=== PATIENT | male | born 1945 | race Caucasian/White ===

== ENCOUNTER → 2017-08-06 | Emergency (ER) | payer OTHER ==
[~2017-08-06] VITALS: Ht 180.3 cm; Wt 140.6 kg
[~2017-08-06] MED LIST: ANTIVERT25 MG PO; ASPIRIN81 M2 PO; AZITHROMYCIN 2250 MG PO; CLONAZEPAM 0.50.5 M1 PO; COLACE100 MG PO; COUMADIN 4 MG TA4 M1 PO; DIGOXIN125 MCG PO; GLIPIZIDE 10 MG10 MG PO; KLOR-CON 1010 MEQ PO; LASIX 40 MG TAB40 M2 PO; LEVAQUIN 750 M750 MG PO; LISINOPRIL5 MG PO; LOTRIMIN ULTRA12 GM TOP; METFORMIN HCL500 MG PO; MICONAZOLE5 GM TOP; MIRALAX17 GM PO; NORCO 10-325 T1 EACH PO; NORFLEX100 MG PO; NOVOLOG100 UNIT/1 SUBQ; PROBIOTIC1 EAC1 PO; TOPROL XL25 MG PO; TRAZODONE HCL100 MG PO; TYLENOL325 MG PO; VITAMIN D1000 UNI1 PO; ZANAFLEX2 MG PO
[2017-08-06 05:23] VITALS: BP 116/70
== END ==
LOC: ER 01:40
DX: G89.29 Other chronic pain (principal); M54.5 Low back pain; F41.9 Anxiety disorder, unspecified; E11.9 Type 2 diabetes mellitus without complications; I48.91 Unspecified atrial fibrillation; I10 Essential (primary) hypertension; F20.9 Schizophrenia, unspecified

== ENCOUNTER 2018-04-29 22:09 | Inpatient (IN) | payer OTHER ==
[~2018-04-29] VITALS: Ht 180.3 cm; Wt 131.1 kg
--- NOTE | ~2018-04-29 | EKG ---
[address] [place] [address] ELECTROCARDIOGRAM REPORT Name: JEANETTEROMELIA GilMANUEL L Room #: 462-P ADM IN M.R.#: [id number] Admission: 04/29/18 Attend Phys: Luh Yanez Discharge: Date of : 41 Report #: [id number] THIS REPORT FOR: //name// [facility] ED Test Date: 2018-04-29 Test Time: 22:24:41 Pat Name: MANUEL REID Department: Room: 462 Gender: M Clip Riveter: DIXIE : 1945 Requested By: Nathan Sexton Order Number: [id number] MD: Gray Mcallister Measurements Intervals [place] Rate: 74 P: [place]: QRS: 27 QRSD: 90 T: 60 QT: 380 QTc: 422 Interpretive Statements Atrial fibrillation No previous ECG available for comparison Electronically Signed On 04-30-2018 8:17:15 CDT by Gray Mcallister [email or web address] <ELECTRONICALLY SIGNED> By: Gray Mcallister MD, [facility] 04/30/18 0817 2224 2224 Gray Mcallister MD, FACC /EPI
--- NOTE | ~2018-04-29 | HC ---
[facility] [place] [address] [address] CONSULTATION Name: MANUEL REID Dhiraj Room #: 462-P ADM IN M.R.#: [id number] Admission: 04/29/18 Attend Phys: Luh Yanez Discharge: Date of : 41 Report #: [id number] THIS REPORT FOR: //name// CC: Luh Yanez Marv Brad Wilder DATE OF SERVICE: 05/01/2018 CHIEF COMPLAINT: Right proximal femur fracture. HISTORY OF PRESENT ILLNESS: This heavy debilitated 72-year-old gentleman fell at his fpc injuring the right hip. X-rays here confirmed a nondisplaced proximal femur fracture in the intertrochanteric region on the right side. He has no other apparent injuries. At the time of my evaluation, he is quite heavy and obviously debilitated. In discussing this with the nursing facility, I believe he requires wheelchair for active ambulation, but has been able to stand and transfer and possibly take a few steps to get to the bathroom in an independent fashion prior to this new injury. He is, however, quite heavy and seems weak and frail, which may significantly limit any rehabilitation prospects. OBJECTIVE: He does have right hip irritability with range of motion, but there is no obvious deformity or shortening. X-rays of the right hip reveal an apparent nondisplaced fracture in the intertrochanteric region of the right proximal femur. He has mild degenerative change at the hip joint. The rest of the bony architecture looks satisfactory. I have had several lengthy discussions with the patient explaining the situation and reviewing treatment options including both surgical and nonsurgical management. If he is truly nonambulatory and has other significant limiting factors, then nonsurgical management with activity limitation might result in satisfactory fracture healing; however, I think there is a significant chance the fracture will displace, particularly if he is trying to ambulate and bear weight with limited strength and limited ability to use a walker in a safe fashion. Consequently, fixation with TFN nail may be a better option. He is at some increased risk for perioperative problems given his age, size and deconditioned state. The patient states he understands this and prefers to go ahead with surgical stabilization using a TFN nail fixation device. Pending medical clearance and OR availability, we will plan to proceed with surgery on 05/02/2018. <ELECTRONICALLY SIGNED> By: Hugo Santillan MD 05/02/18 0740 1053 0111 Hugo Santillan MD /nt
--- NOTE | ~2018-04-29 | O ---
[facility] [place] [address] OPERATIVE REPORT Name: MANUEL REID Room #: 462-P [facility] IN M.R.#: [id number] Admission: 04/29/18 Attend Phys: Luh Yanez Discharge: Date of : 41 Report #: [id number] THIS REPORT FOR: //name// CC: Luh [place] Joy Wilder DATE OF SERVICE: 05/02/2018 PREOPERATIVE DIAGNOSIS: Right proximal femur fracture. POSTOPERATIVE DIAGNOSIS: Right proximal femur fracture. PROCEDURE: Open reduction internal fixation, right proximal femur fracture utilizing TFN nail fixation. SURGEON: Hugo Santillan MD INDICATIONS: This heavy, deconditioned, frail 72-year-old gentleman is a limited ambulator due to weakness and significant flexion contractures of both lower extremities. He fell, injuring the right hip. X-rays confirm an intertrochanteric fracture with minimal displacement. We have discussed treatment options and elected to go ahead with surgical repair. DESCRIPTION OF PROCEDURE: The patient was taken to the operating room where he was placed under general anesthesia. Prophylactic intravenous antibiotics were administered. He was positioned on the fracture table with some difficulty given his very large size and also his significant bilateral knee flexion contractures. The lateral aspect of the right hip and thigh were meticulously prepped and draped and visualized with C-arm. The intertrochanteric fracture appears to be unchanged, essentially anatomic position. A skin incision was made just proximal to the greater trochanter and a guidewire passed through the greater trochanter and down the canal. The trochanter was opened and then a Synthes TFN nail was inserted using a 12 mm diameter nail. This was inserted to an appropriate level and rotation. A guidewire was then passed to the lateral aspect, extending up into the femoral neck and head, in the mid to lower aspect. It was checked with C-arm views and felt to be satisfactory. A 110 mm length helical blade was then inserted. This was brought to a point about 1 cm below the subchondral bone at the femoral head. It seated nicely and appeared to be secure. The proximal locking screw was tightened down and the distal interference locking screw was placed using the outrigger guide. C-arm views revealed essentially anatomic alignment of the fracture and good position of the deb and screws. The incisions were then closed with 0 Vicryl, 2-[address] [address] OPERATIVE REPORT Name: MANUEL REID Room #: 462-P [facility] IN ..#: [id number] Admission: 04/29/18 Attend Phys: Luh Yanez Discharge: Date of : 41 Report #: [id number] skin kuyng. A sterile dressing was applied. The patient was awakened and returned to recovery room in satisfactory condition. <ELECTRONICALLY SIGNED> By: Hugo Santillan MD 05/05/18 0930 0841 1010 Hugo Santillan MD /nicolas
[~2018-04-29 22:09] MED LIST changes: -ANTIVERT25 MG PO; -ASPIRIN81 M2 PO; -AZITHROMYCIN 2250 MG PO; -CLONAZEPAM 0.50.5 M1 PO; -COLACE100 MG PO; -COUMADIN 4 MG TA4 M1 PO; -DIGOXIN125 MCG PO; -GLIPIZIDE 10 MG10 MG PO; -KLOR-CON 1010 MEQ PO; -LASIX 40 MG TAB40 M2 PO; -LEVAQUIN 750 M750 MG PO; -LISINOPRIL5 MG PO; -LOTRIMIN ULTRA12 GM TOP; -METFORMIN HCL500 MG PO; -MICONAZOLE5 GM TOP; -MIRALAX17 GM PO; -NORCO 10-325 T1 EACH PO; -NOVOLOG100 UNIT/1 SUBQ; -PROBIOTIC1 EAC1 PO; -TOPROL XL25 MG PO; -TRAZODONE HCL100 MG PO; -TYLENOL325 MG PO; -VITAMIN D1000 UNI1 PO; -ZANAFLEX2 MG PO
[2018-04-29 22:10] VITALS: BP 132/77
[2018-04-30] LABS: ABSOLUTE NEUTROPHILS 8.9 thou/uL (1.4-8.2); BASOPHILS 0.7 % (0.0-2.0); EOSINOPHILS 2.1 % (0.0-3.0); HEMATOCRIT 43.6 % (42.0-52.0); HEMOGLOBIN 14.9 gm/dL (14.0-18.0); LYMPHOCYTES 10.7 % (24.0-44.0); MCHC 34.2 g/dL (28.0-37.0); MCV 90.5 fL (80.0-100.0); MONOCYTES 11.4 % (1.0-8.0); PLATELET COUNT 247 thou/uL (150-400); POLYS 75.1 % (36.0-66.0); RBC 4.81 mil/uL (4.50-6.00); RDW 14.3 % (10.5-14.5); WBC 11.9 thou/uL (4.0-11.0)
[2018-04-30 00:07] LABS: CALCIUM 8.8 mg/dL (8.5-10.1); CREATININE 1.3 mg/dL (0.7-1.3); POTASSIUM 3.6 mmol/L (3.5-5.1)
[2018-04-30 00:17] LABS: INR 1.9; PROTIME 19.3 Seconds (9.3-11.4)
[2018-04-30] MEDS ORDERED: TYLENOL325 MG PO (00:24)
[2018-04-30] MEDS ORDERED: MICONAZOLE5 GM TOP (00:25)
[2018-04-30] MEDS ORDERED: ASPIRIN81 M2 PO (00:26)
[2018-04-30] MEDS ORDERED: LOTRIMIN ULTRA12 GM TOP (00:29)
[2018-04-30] MEDS ORDERED: AZITHROMYCIN 2250 MG PO (00:29)
[2018-04-30] MEDS ORDERED: DIGOXIN125 MCG PO (00:30)
[2018-04-30] MEDS ORDERED: CLONAZEPAM 0.50.5 M1 PO (00:30)
[2018-04-30] MEDS ORDERED: LASIX 40 MG TAB40 M2 PO (00:31)
[2018-04-30] MEDS ORDERED: LISINOPRIL5 MG PO (00:31)
[2018-04-30] MEDS ORDERED: GLIPIZIDE 10 MG10 MG PO (00:31)
[2018-04-30] MEDS ORDERED: ANTIVERT25 MG PO (00:32)
[2018-04-30] MEDS ORDERED: METFORMIN HCL500 MG PO (00:32)
[2018-04-30] MEDS ORDERED: NORCO 10-325 T1 EACH PO (00:32)
[2018-04-30] MEDS ORDERED: ZANAFLEX2 MG PO (00:33)
[2018-04-30] MEDS ORDERED: TOPROL XL25 MG PO (00:33)
[2018-04-30] MEDS ORDERED: COUMADIN 4 MG TA4 M1 PO (00:34)
[2018-04-30] MEDS ORDERED: VITAMIN D1000 UNI1 PO (00:34)
[2018-04-30] MEDS ORDERED: TRAZODONE HCL100 MG PO (00:34)
[2018-04-30 01:07] VITALS: BP 151/71
[2018-04-30 02:38] LABS: URINE BILIRUBIN NEGATIVE (Negative); URINE BLOOD 3+ (Negative); URINE CLARITY CLEAR; URINE COLOR YELLOW; URINE GLUCOSE-RANDOM* NEGATIVE (Negative); URINE KETONES NEGATIVE (Negative); URINE LEUKOCYTES-REFLEX TRACE (Negative); URINE NITRITE-REFLEX NEGATIVE (Negative); URINE PROTEIN (DIPSTICK) NEGATIVE (Negative); URINE UROBILINOGEN 0.2 E.U./dl (0.2-1.0)
[2018-04-30 02:52] LABS: BACTERIA-REFLEX 1-9 Few /HPF (None Seen); CASTS None Seen /LPF (None Seen); CRYSTALS None Seen /LPF (None Seen); MUCUS 0-3 Light strn/LPF (None Seen); SQUAMOUS None Seen /LPF (0-3); TRANSITIONAL EPITHEL CELL 0-3 Few /LPF (None Seen); URINE RBC >20 Many /HPF (0-2); URINE WBC-REFLEX 0-5 Rare /HPF (0-5)
[2018-04-30 07:20] LABS: INR 1.8; PROTIME 18.5 Seconds (9.3-11.4)
[2018-04-30 08:00] VITALS: BP 164/82
[2018-04-30 20:00] VITALS: BP 139/57
[2018-05-01 04:08] VITALS: BP 164/82
[2018-05-01 04:24] LABS: INR 1.7; PROTIME 17.4 Seconds (9.3-11.4)
[2018-05-01 07:50] VITALS: BP 143/75
[2018-05-01 09:12] LABS: HEMATOCRIT 41.3 % (42.0-52.0); HEMOGLOBIN 13.9 gm/dL (14.0-18.0); MCH 30.9 pg (26.0-34.0); MCHC 33.6 g/dL (28.0-37.0); MCV 91.9 fL (80.0-100.0); RBC 4.49 mil/uL (4.50-6.00); RDW 14.2 % (10.5-14.5); WBC 11.1 thou/uL (4.0-11.0)
[2018-05-01 09:22] LABS: TOTAL BILIRUBIN 0.5 mg/dL (<0.1-1.0); TOTAL PROTEIN 6.5 g/dL (6.4-8.2)
[2018-05-01 09:30] LABS: ALBUMIN 2.8 g/dL (3.4-5.0); CALCIUM 8.5 mg/dL (8.5-10.1); CREATININE 1.1 mg/dL (0.7-1.3)
[2018-05-01 19:50] VITALS: BP 156/81
[2018-05-02 01:18] VITALS: BP 156/81
[2018-05-02 05:37] LABS: INR 1.5; PROTIME 15.5 Seconds (9.3-11.4)
[2018-05-02 10:55] VITALS: BP 189/98
[2018-05-02 14:52] VITALS: BP 144/70
[2018-05-02 19:21] VITALS: BP 137/65
[2018-05-03 00:25] VITALS: BP 153/84
[2018-05-03 08:00] VITALS: BP 156/86
[2018-05-03 08:06] LABS: INR 1.6; PROTIME 16.1 Seconds (9.3-11.4)
[2018-05-03 20:57] VITALS: BP 177/96
[2018-05-04 08:52] VITALS: BP 151/78
[2018-05-04 10:29] LABS: HEMATOCRIT 35.8 % (42.0-52.0); MCH 30.6 pg (26.0-34.0); MCHC 33.5 g/dL (28.0-37.0); MCV 91.3 fL (80.0-100.0); RBC 3.92 mil/uL (4.50-6.00); RDW 14.1 % (10.5-14.5)
[2018-05-04 10:40] LABS: ALBUMIN 2.6 g/dL (3.4-5.0); CALCIUM 8.8 mg/dL (8.5-10.1); CREATININE 1.1 mg/dL (0.7-1.3); MAGNESIUM 2.3 mg/dL (1.8-2.4); POTASSIUM 3.5 mmol/L (3.5-5.1); TOTAL BILIRUBIN 0.5 mg/dL (<0.1-1.0)
[2018-05-04 19:33] VITALS: BP 150/70
[2018-05-05 05:39] LABS: HEMATOCRIT 37.3 % (42.0-52.0); HEMOGLOBIN 12.5 gm/dL (14.0-18.0); MCH 30.5 pg (26.0-34.0); MCHC 33.5 g/dL (28.0-37.0); RBC 4.1 mil/uL (4.50-6.00); WBC 10.7 thou/uL (4.0-11.0)
[2018-05-05 05:51] LABS: CALCIUM 8.7 mg/dL (8.5-10.1); CREATININE 1.1 mg/dL (0.7-1.3); MAGNESIUM 2.2 mg/dL (1.8-2.4); POTASSIUM 3.2 mmol/L (3.5-5.1)
[2018-05-05 08:29] VITALS: BP 151/81
[2018-05-05] MEDS ORDERED: PROBIOTIC1 EAC1 PO (11:52)
[2018-05-05] MEDS ORDERED: NOVOLOG100 UNIT/1 SUBQ (11:52)
[2018-05-05] MEDS ORDERED: LEVAQUIN 750 M750 MG PO (11:52)
[2018-05-05] MEDS ORDERED: KLOR-CON 1010 MEQ PO (11:55)
[2018-05-05] MEDS ORDERED: COLACE100 MG PO (11:58)
[2018-05-05] MEDS ORDERED: MIRALAX17 GM PO (11:58)
== END 2018-05-05 14:21 | DRG 480 ==
LOC: ER 22:09 → 4W 23:30 → EROBS 23:30 → 4W 04-30 00:48
PROVIDERS: Emergency Medicine; Internal Medicine; Nurse Practitioner Acute Care
PROC: 0QS604Z Reposition Right Upper Femur with Internal Fixation Device, Open Approach (ICD-10-PCS; principal; 2018-05-02)
DX: S72.144A Nondisplaced intertrochanteric fracture of right femur, initial encounter for closed fracture (principal); E43 Unspecified severe protein-calorie malnutrition; N39.0 Urinary tract infection, site not specified; E11.9 Type 2 diabetes mellitus without complications; I10 Essential (primary) hypertension; W18.39XA Other fall on same level, initial encounter; G47.33 Obstructive sleep apnea (adult) (pediatric); F20.9 Schizophrenia, unspecified; I48.2 Chronic atrial fibrillation; Z79.82 Long term (current) use of aspirin; F41.9 Anxiety disorder, unspecified; Z79.84 Long term (current) use of oral hypoglycemic drugs; Z79.899 Other long term (current) drug therapy; Z79.01 Long term (current) use of anticoagulants; Y93.89 Activity, other specified; Y92.89 Other specified places as the place of occurrence of the external cause; Y99.8 Other external cause status; Z87.891 Personal history of nicotine dependence; Z86.73 Personal history of transient ischemic attack (TIA), and cerebral infarction without residual deficits; Z83.3 Family history of diabetes mellitus; Z82.49 Family history of ischemic heart disease and other diseases of the circulatory system
CPT/HCPCS: 10040; 50010; 50101; 50133; 50386; 51412; 51538; 51817; 52145; 52146; 52304; 56525; 57092; 62110; 62900; 70005

== ENCOUNTER 2018-12-04 17:07 | Emergency (ER) | payer OTHER ==
[~2018-12-04] VITALS: Ht 180.3 cm; Wt 124.7 kg
[~2018-12-04 17:07] MED LIST changes: +ANTIVERT25 MG PO; +ASPIRIN81 M2 PO; +AZITHROMYCIN 2250 MG PO; +CLONAZEPAM 0.50.5 M1 PO; +COLACE100 MG PO; +COUMADIN 4 MG TA4 M1 PO; +DIGOXIN125 MCG PO; +GLIPIZIDE 10 MG10 MG PO; +KLOR-CON 1010 MEQ PO; +LASIX 40 MG TAB40 M2 PO; +LEVAQUIN 750 M750 MG PO; +LISINOPRIL5 MG PO; +LOTRIMIN ULTRA12 GM TOP; +METFORMIN HCL500 MG PO; +MICONAZOLE5 GM TOP; +MIRALAX17 GM PO; +NORCO 10-325 T1 EACH PO; +NOVOLOG100 UNIT/1 SUBQ; +PROBIOTIC1 EAC1 PO; +TOPROL XL25 MG PO; +TRAZODONE HCL100 MG PO; +TYLENOL325 MG PO; +VITAMIN D1000 UNI1 PO; +ZANAFLEX2 MG PO
[2018-12-04 18:29] LABS: URINE BILIRUBIN NEGATIVE (Negative); URINE BLOOD TRACE (Negative); URINE CLARITY CLEAR; URINE COLOR YELLOW; URINE GLUCOSE-RANDOM* NEGATIVE (Negative); URINE KETONES NEGATIVE (Negative); URINE PROTEIN (DIPSTICK) NEGATIVE (Negative); URINE SPECIFIC GRAVITY 1.025 (1.005-1.035); URINE UROBILINOGEN 0.2 E.U./dl (0.2-1.0)
[2018-12-04 18:33] LABS: URINE LEUKOCYTES-REFLEX 1+ (Negative); URINE NITRITE-REFLEX POSITIVE (Negative)
[2018-12-04 18:41] LABS: BACTERIA-REFLEX >30 Many /HPF (None Seen); CASTS None Seen /LPF (None Seen); CRYSTALS None Seen /LPF (None Seen); SQUAMOUS 0-3 Few /LPF (0-3)
[2018-12-04 18:42] LABS: URINE RBC None Seen /HPF (0-2)
[2018-12-04] MEDS ORDERED: BACTRIM DS TAB1 EACH PO ×2 (19:07→19:10)
[2018-12-04 20:18] VITALS: BP 122/72
== END 2018-12-04 20:19 | disposition home or self-care (01) ==
LOC: ER 17:07
PROVIDERS: Physician Assistant
DX: N39.0 Urinary tract infection, site not specified (principal); R23.8 Other skin changes; F41.9 Anxiety disorder, unspecified; E11.9 Type 2 diabetes mellitus without complications; I48.91 Unspecified atrial fibrillation; I10 Essential (primary) hypertension; F20.9 Schizophrenia, unspecified; G47.33 Obstructive sleep apnea (adult) (pediatric); G89.29 Other chronic pain; M54.9 Dorsalgia, unspecified; Z79.4 Long term (current) use of insulin

== ENCOUNTER 2019-09-17 10:29 | Emergency (ER) | payer OTHER ==
[~2019-09-17] VITALS: Ht 175.3 cm; Wt 127.0 kg
[~2019-09-17 10:29] MED LIST changes: +BACTRIM DS TAB1 EACH PO
[2019-09-17] MEDS ORDERED: NEURONTIN100 MG PO (10:44)
[2019-09-17] MEDS ORDERED: LANTUS100 UNIT/M SUBQ (10:45)
[2019-09-17] MEDS ORDERED: MELATONIN3 M1 PO (10:46)
[2019-09-17] MEDS ORDERED: SUPER THERAVIT1 EACH PO (10:47)
[2019-09-17 10:59] LABS: ABSOLUTE NEUTROPHILS 6.8 thou/uL (1.4-8.2); BASOPHILS 1.1 % (0.0-2.0); EOSINOPHILS 1.9 % (0.0-3.0); HEMATOCRIT 44.1 % (42.0-52.0); HEMOGLOBIN 14.2 gm/dL (14.0-18.0); LYMPHOCYTES 13.5 % (24.0-44.0); MCHC 32.2 g/dL (28.0-37.0); MCV 93.1 fL (80.0-100.0); PLATELET COUNT 328 thou/uL (150-400); POLYS 74.5 % (36.0-66.0); RBC 4.73 mil/uL (4.50-6.00); RDW 14.9 % (10.5-14.5); WBC 9.1 thou/uL (4.0-11.0)
[2019-09-17 11:07] LABS: CALCIUM 8.6 mg/dL (8.5-10.1); CREATININE 1.4 mg/dL (0.7-1.3)
[2019-09-17 11:22] LABS: ALBUMIN 3.5 g/dL (3.4-5.0); TOTAL BILIRUBIN 0.4 mg/dL (<0.1-1.0); TOTAL PROTEIN 8.3 g/dL (6.4-8.2)
[2019-09-17 11:25] LABS: URINE BILIRUBIN NEGATIVE (Negative); URINE BLOOD TRACE (Negative); URINE CLARITY CLEAR; URINE COLOR YELLOW; URINE GLUCOSE-RANDOM* NEGATIVE (Negative); URINE KETONES NEGATIVE (Negative); URINE NITRITE-REFLEX NEGATIVE (Negative); URINE PROTEIN (DIPSTICK) NEGATIVE (Negative); URINE SPECIFIC GRAVITY 1.015 (1.005-1.035); URINE UROBILINOGEN 0.2 E.U./dl (0.2-1.0)
[2019-09-17 11:26] LABS: URINE LEUKOCYTES-REFLEX 1+ (Negative)
[2019-09-17 11:33] LABS: CASTS None Seen /LPF (None Seen); CRYSTALS None Seen /LPF (None Seen); SQUAMOUS 0-3 Few /LPF (0-3)
[2019-09-17 11:34] LABS: URINE WBC-REFLEX 6-15 Few /HPF (0-5)
[2019-09-17 11:35] LABS: URINE RBC 0-2 Rare /HPF (0-2)
[2019-09-17] MEDS ORDERED: BACTRIM DS TAB1 EACH PO ×5 (12:30→13:11)
[2019-09-17 15:08] VITALS: BP 144/93
--- NOTE | 2019-09-17 16:29 | EKG ---
[facility] [place] [address] ELECTROCARDIOGRAM REPORT Name: MANUEL REID Room #: [facility]#: [id number] Admission: 09/17/19 Attend Phys: Discharge: 09/17/19 Date of : 41 Report #: [id number] THIS REPORT FOR: cc: Ed Merino James D. DO Couchonnal, Luis F. 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
== END 2019-09-17 15:15 | disposition home or self-care (01) ==
LOC: ER 10:29
PROVIDERS: Physician Assistant
DX: N39.0 Urinary tract infection, site not specified (principal); N50.819 Testicular pain, unspecified; I48.91 Unspecified atrial fibrillation; E11.9 Type 2 diabetes mellitus without complications; G47.00 Insomnia, unspecified; I10 Essential (primary) hypertension; F20.9 Schizophrenia, unspecified; F41.9 Anxiety disorder, unspecified; Z86.73 Personal history of transient ischemic attack (TIA), and cerebral infarction without residual deficits

== ENCOUNTER 2020-12-07 19:23 | Inpatient (IN) | payer OTHER ==
[~2020-12-07] VITALS: Ht 180.3 cm; Wt 156.7 kg
[~2020-12-07 19:23] MED LIST changes: -COUMADIN 4 MG TA4 M1 PO; +LANTUS100 UNIT/M SUBQ; +LISINOPRIL20 MG PO; -LISINOPRIL5 MG PO; +MELATONIN3 M1 PO; +NEURONTIN100 MG PO; +SUPER THERAVIT1 EACH PO; +TYLENOL EXTRA500 MG PO; -TYLENOL325 MG PO; -VITAMIN D1000 UNI1 PO; +VITAMIN D325 MC1 PO; +WARFARIN SODIUM2 MG PO
[2020-12-07 19:25] VITALS: BP 154/93
[2020-12-07 20:28] LABS: ABSOLUTE NEUTROPHILS 7.7 thou/uL (1.4-8.2); BASOPHILS 0.9 % (0.0-2.0); EOSINOPHILS 1.1 % (0.0-3.0); HEMATOCRIT 43.8 % (42.0-52.0); HEMOGLOBIN 14.2 gm/dL (14.0-18.0); MCH 29.7 pg (26.0-34.0); MCHC 32.4 g/dL (28.0-37.0); MCV 91.6 fL (80.0-100.0); MONOCYTES 9.3 % (1.0-8.0); PLATELET COUNT 294 thou/uL (150-400); POLYS 73.7 % (36.0-66.0); RBC 4.78 mil/uL (4.50-6.00); RDW 14.7 % (10.5-14.5); WBC 10.5 thou/uL (4.0-11.0)
[2020-12-07 20:36] LABS: ANION GAP 7 mmol/L (7-16); BUN 17 mg/dL (7-18); CALCIUM 9.1 mg/dL (8.5-10.1); CHLORIDE 102 mmol/L (98-107); CO2 30 mmol/L (21-32); CREATININE 1.4 mg/dL (0.7-1.3); GLUCOSE 220 mg/dL (74-106); POTASSIUM 4.8 mmol/L (3.5-5.1); SODIUM 139 mmol/L (136-145)
[2020-12-07 20:43] LABS: URINE BILIRUBIN NEGATIVE (Negative); URINE BLOOD 1+ (Negative); URINE CLARITY CLEAR; URINE COLOR YELLOW; URINE GLUCOSE-RANDOM* TRACE (Negative); URINE KETONES TRACE (Negative); URINE LEUKOCYTES-REFLEX NEGATIVE (Negative); URINE NITRITE-REFLEX NEGATIVE (Negative); URINE PROTEIN (DIPSTICK) 2+ (Negative); URINE SPECIFIC GRAVITY >= 1.030 (1.005-1.035); URINE UROBILINOGEN 0.2 E.U./dl (0.2-1.0)
[2020-12-07 20:46] LABS: DIGOXIN < 0.2 ng/mL (0.9-2.0); MAGNESIUM 1.8 mg/dL (1.8-2.4); SGOT 21 U/L (15-37); SGPT 17 U/L (16-63); TOTAL BILIRUBIN 0.3 mg/dL (0.2-1.0); TOTAL PROTEIN 7.7 g/dL (6.4-8.2); TROPONIN-I <0.06 ng/mL (<0.06)
[2020-12-07 20:54] LABS: HYALINE CASTS >10 Many /LPF (None Seen)
[2020-12-07 20:55] LABS: MUCUS >6 Heavy strn/LPF (None Seen); SQUAMOUS 4-10 Moderate /LPF (0-3); WBC CLUMPS Few (None Seen)
[2020-12-07 20:56] LABS: URINE RBC 1-2 Rare /HPF (NONE SEEN)
[2020-12-07 20:57] LABS: CRYSTALS None Seen /LPF (None Seen)
[2020-12-07 21:39] VITALS: BP 95/52
[2020-12-07 21:39] LABS: INR 1.5
[2020-12-07 22:08] VITALS: BP 126/60
[2020-12-07 22:30] VITALS: BP 96/54
--- NOTE | 2020-12-07 23:43 | NUR ---
PT ADMITTED FROM [facility]. AFIBB RVR. PT PLACED ON CARDIZEM DRIP IN ED. PT AOX2, PT DOES NOT KNOW DATE, TIME. PT IS OBESE. FLUSHED. PT AMBULATES IN W/C, PT REPORTS POOR SPINE STRENGTH. PT HAS A HX OF CVA AND REPORTS BLURRED VISION IN R EYE. PT DOES NOT HAVE A DPOA. PT DOES SPEAK WITH HIS SISTER WEEKLY. [facility] SENT TO SECURITY. PT REPORTED NOT WANTING TO RETURN TO [facility] BECAUSE THEY SMOKE THERE. BED ALARM ON.
[2020-12-07] MEDS ORDERED: MAGOX 400400 MG PO (23:52)
[2020-12-07] MEDS ORDERED: PROAIR HFA8.5 GM INH (23:53)
[2020-12-08] VITALS (9 sets, daily range): BP systolic 96–137; BP diastolic 51–93
[2020-12-08 04:59] LABS: CREATININE 1.3 mg/dL (0.7-1.3); POTASSIUM 4.9 mmol/L (3.5-5.1)
[2020-12-08 05:14] LABS: INR 1.46; PROTIME 15.6 Seconds (10.5-12.1)
--- NOTE | 2020-12-08 06:45 | EKG ---
[address] [address] ELECTROCARDIOGRAM REPORT Name: JEANETTEROMELIA GilMANUEL L Room #: 353-P ADM IN M.R.#: [id number] Admission: 12/07/20 Attend Phys: Radha Decker MD Discharge: Date of : 41 Report #: [id number] [facility] ED Test Date: 2020-12-07 Test Time: 19:30:02 Pat Name: MANUEL REID Department: Room: [facility] Gender: M Branch Service Associate: : 1945 Requested By: Leesa Sanchez Order Number: [id number] MD: Adarsh Dunn Measurements Intervals [place] Rate: 134 P: [place]: QRS: 15 QRSD: 79 T: 41 QT: 315 QTc: 471 Interpretive Statements Atrial fibrillation Baseline wander in lead(s) V1,V4,V5 Compared to ECG 09/17/2019 11:04:59 No significant changes Electronically Signed On 12-08-2020 6:45:21 CDT by Adarsh Dunn [email or web address] <ELECTRONICALLY SIGNED> By: Adarsh Dunn MD, [facility] 12/08/20 0645 29 29 Adarsh Dunn MD, FACC /EPI
[2020-12-08] MEDS ORDERED: MICONAZOLE5 GM TOP (08:56)
[2020-12-08] MEDS ORDERED: AAA-MED REC COMPLETE PO (08:57)
--- NOTE | 2020-12-08 10:14 | NUR ---
Assess due to consult received. Admit from NH with afib. Hx DM, CVA, DEVIN, schizophrenia. Good appetite, BG 194. Initial admit wt 347 lb ?, pt does not appear this weight, and also pt reports usual more closer to 270 lb. New BMI calculated as 37 using usual wt=obesity. pt had no interest in diet information. Continue carb control diet order. Low nutrition risk
--- NOTE | 2020-12-08 11:49 | 2DMMODE ---
[facility] [place] [address] 2 D/M-MODE ECHOCARDIOGRAM Name: MANUEL REID Dhiraj Room #: 353-P ADM IN M.R.#: [id number] Admission: 12/07/20 Attend Phys: Luh Yanez Discharge: Date of : 41 Report #: [id number] THIS REPORT FOR: cc: Ed Merino James D. DO Santiago, Patrick MD [facility] ~ APPROVED REPORT Study performed: 12/08/2020 10:56:34 EXAM: Comprehensive 2D, Doppler, and color-flow Echocardiogram Patient Location: Bedside Room #: 353 Status: routine BSA: 2.65 HR: 114 bpm BP: 113/67 mmHg Rhythm: Atrial Fibrillation Other Information Study Quality: Adequate Technically limited study due to super morbid obesity, heavy breathing. Indications Atrial Fibrillation Dyspnea 2D Dimensions RVDd: 34.80 mm IVSd: 12.00 (7-11mm) LVOT Diam: 24.00 (18-24mm) LVDd: 58.00 mm PWd: 12.00 (7-11mm) LVDs: 49.90 (25-40mm) Left Atrium: 49.90 (27-40mm) Aortic Root: 35.49 mm Volumes Left Atrial Volume (Systole) Single Plane 4CH: 104.64 mL Single Plane 2CH: 112.34 mL LA ESV Index: 44.00 mL/m2 Aortic Valve AoV Peak Conrad.: 0.98 m/s [facility] [address] [place] [address] 2 D/M-MODE ECHOCARDIOGRAM Name: MANUEL REID Room #: 353-P ADM IN .R.#: [id number] Admission: 12/07/20 Attend Phys: Luh Lazaro Discharge: Date of : 41 Report #: [id number] AO Peak Gr.: 3.86 mmHg LVOT Max P.79 mmHg LVOT Max V: 0.84 m/s RIO Vmax: 3.78 cm2 Tricuspid Valve TR Peak Conrad.: 3.08 m/s TR Peak Gr.: 38.02 mmHg Left Ventricle Left ventricle is at the upper limits of normal. Mild concentric left ventricular hypertrophy. Left ventricular systolic function is moderately decreased. LVEF is 35-40%. This study is not technically sufficient to allow evaluation of the LV diastolic function due to atrial fibrillation. Right Ventricle The right ventricle is normal size. The right ventricular systolic function is normal. Atria Left atrium is moderately dilated. Right atrium is mildly dilated. Aortic Valve The aortic valve is not well visualized. No aortic regurgitation is present. There is no aortic valvular stenosis. Mitral Valve The mitral valve is normal in structure. Mild mitral regurgitation. Tricuspid Valve The tricuspid valve is normal in structure. Mild tricuspid regurgitation. Estimated PAP is 38mmHg plus the right atrial pressure. Pulmonic Valve Pulmonic valve is not well visualized. Great Vessels The aortic root is normal in size. Ascending aorta is not well visualized. IVC is not well visualized. Pericardium There is no pericardial effusion. [facility] [address] [place] [address] 2 D/M-MODE ECHOCARDIOGRAM Name: MANUEL REID Room #: 353-P [facility] IN ..#: [id number] Admission: 12/07/20 Attend Phys: Luh Lazaro Discharge: Date of : 41 Report #: [id number] <Conclusion> Study performed in atrial fibrillation Normal left ventricle size with mild concentric hypertrophy Global hypokinesis ejection fraction 35-40% Normal right ventricle size/function Left atrium moderately dilated Right atrium mildly dilated Color-flow Doppler study was performed of the aortic/mitral/tricuspid/pulmonary valve Aortic valve minimally calcified, no stenosis Mild tricuspid valve insufficiency Pulmonary systolic pressure estimated 38 mmHg Normal aortic root size No pericardial effusion <ELECTRONICALLY SIGNED> By: Adarsh Dunn MD, FACC 12/08/20 1149 1149 1149 Adarsh Dunn MD, FACC /INF
--- NOTE | 2020-12-08 13:30 | NUR ---
INITIAL ASSESSMENT: Received consult regarding discharge planning. ANA reviewed chart and spoke with nursing and attending physician. Pt was admitted from [facility] due to Afib with RVR. Pt is currenlty on 3L of O2 and IV lasix. ANA met with pt at bedside. Introduced role of ANA. Pt is alert/orientated x 4. Pt reports that he is in LTC at [place] and is mainly w/c bound. Pt states he is unhappy with his facility because residents next door to him smoke all day and he does not appreciate the odor of the smoke. SW offered to discuss with [facility] post-acute liaison to look into the issue and discuss with the staff at the facility. Pt gave consent for SW to discuss with liaison. Pt confirms his plan is to return to the facility when ready for discharge. Pt's sister is listed as a contact for pt. Pt states he will updated her today. ANA faxed clinical info to [facility] for review. Spoke with [facility] post-acute liaison regarding pt's concern about smoking at the facility. Liaison discussed with staff and the residents in the room next door to pt smoke outside during the designated smoking times and are non-compliant with personal hygiene. Staff states that the odor of smoke is present around that room. Staff is willing to move pt to another room if he is interested. Pt off the unit with ANA returned to follow up. ANA will discuss with pt at a later time. OT ordered to evaluate pt. Pt may return as skilled in insurance provides authorization. ANA is following to assist as needed with discharge planning.
--- NOTE | 2020-12-08 15:29 | NUR ---
assumed care of pt at 0700. pt alert to self and situation, pleasant, forgetful, no acute distress. cardizem gtt resumed due to increasing HR throughout the day - cardiology notified. taken to nuc med for one part of stress test. good output with iv lasix. up to bsc w/ sba. impulsive at times. wcm.
--- NOTE | 2020-12-08 16:00 | EKG ---
[address] [address] ELECTROCARDIOGRAM REPORT Name: MANUEL REID Room #: 353-P ADM IN M.R.#: [id number] Admission: 12/07/20 Attend Phys: Luh Yanez Discharge: Date of : 41 Report #: [id number] [facility] ED Test Date: 2020-12-07 Test Time: 21:29:31 Pat Name: MANUEL REID Department: Room: 353 Gender: M Medical Records Administrator: PABLO : 1945 Requested By: Luh Yanez Order Number: [id number] MD: Adarsh Dunn Measurements Intervals [place] Rate: 78 P: [place]: QRS: 25 QRSD: 81 T: 54 QT: 393 QTc: 448 Interpretive Statements Atrial fibrillation Compared to ECG 12/07/2020 19:30:02 No significant changes Electronically Signed On 12-08-2020 16:00:37 CDT by Adarsh Dunn [email or web address] <ELECTRONICALLY SIGNED> By: Adarsh Dunn MD, [facility] 12/08/201599 28 28 Adarsh Dunn MD, FACC /EPI
[2020-12-09 03:57] VITALS: BP 101/52
--- NOTE | 2020-12-09 04:15 | NUR ---
Patient making some progress towards outcome goals. Continues in Cardizem drip, rate at 5 mg/HR, rate controlled. SBP stable, High fall risks, forgetful but steady gait. Fall precautions in place.
[2020-12-09 07:25] VITALS: BP 119/74
[2020-12-09] MEDS ORDERED: CEFUROXIME250 MG PO (09:08)
[2020-12-09] MEDS ORDERED: CARVEDILOL25 MG PO (09:08)
[2020-12-09 09:38] LABS: INR 1.41; PROTIME 15.1 Seconds (10.5-12.1)
[2020-12-09 11:16] VITALS: BP 98/54
--- NOTE | 2020-12-09 13:19 | NUR ---
ANA reviewed chart and spoke with nursing and attending physician. Pt has discharge orders. Pt refused to have part 2 of stress test today. Pt remains on cardizem gtt. ANA contacted attending physician to discuss discharge and requested facility discharge summary. ANA faxed updated clinical and therapy notes to [facility] and notified [facility] post-acute liaison, who states they are able to accept pt back today. Awaiting finalized discharge orders/summary. ANA is following to assist as needed with discharge planning.
--- NOTE | 2020-12-09 15:19 | NUR ---
ASSUMED PATIENT CARE AT 0700. A/O X3. OFF CARDIZEM GTT AT 1430. AFIB ON MONITOR. HR 80 TO 90. PATIENT DENIES PAIN. WILL DC TO SNF AT 1530.
== END 2020-12-09 15:36 | DRG 291 ==
LOC: ER 19:23 → EROBS 21:14 → 3W 21:14
PROVIDERS: Emergency Medicine; Nurse Practitioner Adult Health; Nurse Practitioner Family; ADMIT Hospitalist; ATTEND Hospitalist
DX: I11.0 Hypertensive heart disease with heart failure (principal); I50.31 Acute diastolic (congestive) heart failure; R65.11 Systemic inflammatory response syndrome (SIRS) of non-infectious origin with acute organ dysfunction; I48.21 Permanent atrial fibrillation; Z68.42 Body mass index [BMI] 45.0-49.9, adult; F41.9 Anxiety disorder, unspecified; G47.00 Insomnia, unspecified; E11.9 Type 2 diabetes mellitus without complications; K59.00 Constipation, unspecified; G89.29 Other chronic pain; M54.9 Dorsalgia, unspecified; R53.81 Other malaise; G47.33 Obstructive sleep apnea (adult) (pediatric); F20.9 Schizophrenia, unspecified; E66.01 Morbid (severe) obesity due to excess calories; F32.9 Major depressive disorder, single episode, unspecified; Z79.899 Other long term (current) drug therapy; Z86.73 Personal history of transient ischemic attack (TIA), and cerebral infarction without residual deficits; Z87.891 Personal history of nicotine dependence
CPT/HCPCS: 10879